=== PATIENT | female | born 1950 | race African-American/Black ===

== ENCOUNTER 2021-06-22 08:35 | Day surgery (SDC) | payer MEDICARE, OTHER ==
[2021-06-19 14:45] VITALS: BMI 26.4
[2021-06-22] MEDS ORDERED: PROPOFOL 20 ML ONE ×3 (09:28)
[2021-06-22] MEDS ORDERED: LIDOCAINE HCL/PF 2% SDV 5ML VIAL ONE (09:28)
[2021-06-22 10:12] VITALS: TEMP 97.8
[2021-06-22 10:32] VITALS: BP 127/60; PULSE 80
== END 2021-06-22 11:05 | disposition home or self-care (01) ==
LOC: FASU-ENDO 08:35
PROVIDERS: ATTEND Internal Medicine Gastroenterology
PROC: 0DJD8ZZ Inspection of Lower Intestinal Tract, Via Natural or Artificial Opening Endoscopic (ICD-10-PCS; principal; 2021-06-22 09:39)
DX: Z12.11 Encounter for screening for malignant neoplasm of colon (principal); K64.1 Second degree hemorrhoids